=== PATIENT | female | born 1945 | race Caucasian/White ===

== ENCOUNTER → 2018-07-31 18:26 | Outpatient (CLI) | payer MEDICARE, SELFPAY ==
[2018-07-31 20:29] LABS: M R Staph aureus DNA By PCR Negative (Negative); Probe Check PASS; Specimen Processing Control PASS; Staph aureus DNA By PCR NEGATIVE (Negative)
== END ==
PROVIDERS: Visit Provider Ophthalmology
DX: Z22.321 Carrier or suspected carrier of Methicillin susceptible Staphylococcus aureus (principal)
CPT/HCPCS: 87640

== ENCOUNTER → 2019-02-25 | Outpatient (CLI) | payer MEDICARE, SELFPAY | END | disposition home or self-care (01) | PROVIDERS: Referring Provider Ophthalmology; Visit Provider Ophthalmology | DX: Z22.321 Carrier or suspected carrier of Methicillin susceptible Staphylococcus aureus (principal) | CPT/HCPCS: 87081 ==

== ENCOUNTER 2024-12-31 11:58 | Emergency (ER) | payer MEDICARE, SELFPAY ==
[2024-12-31 11:59] VITALS: BP 192/97; PULSE 78; RESP 16; TEMP 36.5; O2SAT 99; BMI 21.2
--- NOTE | 2024-12-31 13:16 | EKG12_ITS ---
Test Reason : Blood Pressure : */* mmHG Vent. Rate : 66 BPM Atrial Rate : 66 BPM P-R Int : 136 ms QRS Dur : 98 ms QT Int : 420 ms P-R-T Axes : 65 -8 38 degrees QTcB Int : 440 ms Normal sinus rhythm Moderate voltage criteria for LVH, may be normal variant ( R in aVL , [place] product ) Borderline ECG Confirmed by TIMOTHY HANSEN, FRANCESCO ([id number]), scientific editor STEVIE CROWDER ([id number]) on 01/02/2025 12:56:25 PM Referred By: IAN Confirmed By: FRANCESCO AGUIRRE MD
--- NOTE | 2024-12-31 13:16 | CT_ITS ---
EXAM: BRAIN/HEAD WITHOUT CONTRAST CLINICAL HISTORY: Hypertensive headaches. COMPARISON: None. TECHNIQUE: Helical imaging of CT head was performed without IV contrast. One or more of the following dose reduction techniques were used: automated exposure control, adjustment of the mA and/or kV according to patient size, use of iterative reconstruction technique. FINDINGS: BRAIN PARENCHYMA: No evidence for acute hemorrhage or large territory infarct. EXTRA-AXIAL SPACES: No acute extra-axial fluid collection identified. Basal cisterns are patent. Mild degree of cerebral atrophy in keeping with the patient's age. MIDLINE SHIFT: None. VENTRICLES: No evidence of hydrocephalus. SCALP SOFT TISSUES: No significant abnormality. CALVARIUM: No acute process. VISUALIZED PARANASAL SINUSES: No air-fluid levels. MASTOID AIR CELLS: Grossly clear. CT/Brain/Head without Contrast IMPRESSION: Mild degree of cerebral atrophy. Reading Location: [place] [address]
--- NOTE | 2024-12-31 13:18 | EDS_ITS ---
HPI History of Present Illness Chief Complaint: Hypertension Narrative Narrative: 79-year-old female presents from gastroenterology office as she was there for an outpatient visit, with elevated blood pressure. While she states that she does not have history of hypertension and does not take any medication, there was a time a few months ago that her blood pressure was elevated and she was told by her primary care provider to log her blood pressures. She has not done that for a month and a half approximately. She presents to the emergency department with reported blood pressure elevated at 188 systolic. She denies any chest pain or shortness of breath but states over the last few days she has had headache. She denies any paresthesias, no exacerbating or alleviating factors. [facility] Medical History Migraine Colitis Heart valve problem Vision problems Pneumonia Macular degeneration Cataracts, bilateral Seasonal allergies Home Medications ?Medication ?Instructions ?Recorded ?Last Taken ?Type amlodipine 5 mg tablet 5 mg PO DAILY #30 tabs 12/31 Unknown Rx peg 3350-electrolytes 236 240 ml PO Q10M #4,000 mL 11/12 Unknown Rx gram-22.74 gram-6.74 gram-5.86 gram solution (Golytely) Allergy/AdvReac Type Severity Reaction Status Date / Time No Known Allergies Allergy Verified 12/31/24 12:01 Family History Grandmother Colon cancer Aunt Colon cancer Daughter Autoimmune disorder Other CVA (cerebral vascular accident) Diabetes Hypertension Social History Smoking Status: Never smoker ROS ROS ED ROS Narrative Review of systems positive for headaches over the last few days. No chest pain, no shortness of breath, no nausea or vomiting, no diaphoresis. Denies other symptoms. Otherwise asymptomatic except for headaches. EXAM Physical Exam Narrative Exam Narrative: Afebrile. Vital signs noted. Blood pressure noted in triage as 192/97. Nontoxic-appearing. Cardiovascular examination reveals a regular rate and rhythm. Lungs are clear to auscultation bilaterally. Abdomen is soft nontender without guarding or rebound. No noted pedal edema. Neurological examination nonfocal and nonlateralizing. Const Vital Signs: 12/31/24 11:59 12/31/24 11:59 12/31/24 13:59 Temperature 97.7 F L Temperature Source Oral Pulse Rate 78 79 Respiratory Rate 16 13 Respiratory Effort Normal Non-Labored Blood Pressure 192/97 H 156/86 H Blood Pressure Mean 128 109 Pulse Ox 99 97 Oxygen Delivery Method Room Air MDM MDM MDM Narrative Medical decision making narrative: Differential diagnosis includes but not limited to hypertensive intracranial hemorrhage for her headaches versus nonspecific headache. She may have a hypertensive urgency versus emergency. She is not having chest pain or shortness of breath. As she relates history that she has had problems throughout the years with fluctuating blood pressure and was told to keep an eye on her blood pressure as it was elevated a few months ago, I do feel that she may need to be started on medication. Given her elevated blood pressure here she was administered hydralazine [address] of the brain will be obtained to rule out hemorrhage. I will obtain EKG and CBC as well as CMP and a single troponin. She was placed on a director of scientific research. Do not feel she requires chest x-ray as she is not having chest pain and is asymptomatic with her elevated blood pressure except for slight headache. After hydralazine, systolic blood pressure 155. I reviewed her laboratory work and she has normal white count of 5.7 with hemoglobin normal at 13.2, platelet count normal at 256. Chloride slightly elevated at 108 which I think is nonspecific, glucose 100. LFTs grossly unremarkable. High-sensitivity troponin 6. EKG obtained and interpreted by myself independently as normal sinus rhythm at 66 bpm without ectopy or acute ST changes. No STEMI. I reviewed the radiology report of the CT of the brain which shows no acute hemorrhage, no acute process. At this point in time, I stressed the importance of blood pressure control. I do not feel she requires admission or observation. I wrote her a prescription for amlodipine 5 mg orally to take daily, and she will keep a log of her blood pressures for her primary care provider. She states she has an appointment sometime next week. Return instructions to the emergency department were reviewed. Disposition is discharged home in stable condition. History & Record Review Discussion w/independent historian: Patient Lab Data Attestation: I reviewed the patient's lab results. Labs: Laboratory Results - last 24 hr 12/31/24 13:30 WBC 5.7 RBC 4.64 Hgb 13.2 Hct 41.2 MCV 88.8 MCH 28.4 MCHC 32.0 RDW Std Deviation 45.8 H RDW Coeff of Fazal 14.1 Plt Count 256 MPV 9.3 Immature Gran % (Auto) 0.200 Neut % (Auto) 61.1 Lymph % (Auto) 27.4 Grainger % (Auto) 8.3 Eos % (Auto) 2.1 Baso % (Auto) 0.9 Absolute Neuts (auto) 3.5 Absolute Lymphs (auto) 1.55 Nucleated RBC % 0 Sodium 141 Potassium 3.5 Chloride 108 H Carbon Dioxide 28.0 Anion Gap 5 BUN 14 Creatinine 0.70 Estim Creat Clear Calc 54.26 Est GFR (MDRD) Af Amer 105 Est GFR (MDRD) Non-Af 86 BUN/Creatinine Ratio 20.1 H Glucose 100 Calcium 9.1 Total Bilirubin 0.60 AST 18 ALT 30 Alkaline Phosphatase 63 Troponin I High Sens 6 Total Protein 7.0 Albumin 4.0 Globulin 3.0 Albumin/Globulin Ratio 1.3 Radiography Diagnostic Testing: Clinical Impression(s) from Imaging Studies Brain CT 12/31/24 13:16 IMPRESSION: Mild degree of cerebral atrophy. Reading Location: [place] [address] Discharge Plan Triage Chief Complaint: Hypertension ED Provider: Ravin Walker Dx/Rx/DC Orders Clinical Impression: Hypertension, Headache Instructions: ED Hypertension New Begin Treatment Prescriptions: New amlodipine 5 mg tablet 5 mg PO DAILY Qty: 30 0RF No Action peg 3350-electrolytes [Golytely] 236-22.74-6.74 -5.86 gram recon soln 240 ml PO Q10M Qty: 4000 0RF Rx Instructions: take as directed for split dose bowel prep Primary Care Provider: Caitlin Travis Referrals: Caitlin Travis PABayC [Primary Care Provider] - 3-5 Days if not improving Activity Restrictions/Additional Instructions: Keep a log of your blood pressures for your primary care provider and follow-up as scheduled next week. Return to the emergency department with chest pain, shortness of breath, continued elevated blood pressure, especially above 200 systolic, new or worsening symptoms Print Language: Mohawk Disposition Disposition: Home, Self Care
[2024-12-31] MEDS: hydrALAZINE 20 MG/ML Vial 10 MG IV (13:38)
[2024-12-31 13:47] LABS: Absolute Lymphocyte Count 1.55 X10^3/uL (0.83-4.51); Absolute Neutrophil Count 3.5 X10^3/uL (2.0-7.7); Basophil# 0.05 X10^3/uL; Basophil% 0.9 % (0-1); Eosinophil# 0.12 X10^3/uL; Eosinophils% 2.1 % (0-5); Hematocrit 41.2 % (37-47); Hemoglobin 13.2 g/dL (12.0-15.0); Lymphocyte # 1.55 X10^3/ul (0.83-4.51); Lymphocyte % 27.4 % (19-41); Mean Corpuscular Hgb 28.4 pg (27.0-32.0); Mean Corpuscular Volume 88.8 fL (81-99); Mean Platelet Vol. 9.3 fl (6.2-12.0); Monocyte# 0.47 X10^3/uL; Monocyte% 8.3 % (0-10); NRBC Flagged by Analyzer 0 % (0-5); Neutrophil # 3.46 X10^3/uL (2.7-7.7); Neutrophil % 61.1 % (47-70); Platelet Count 256 K/mm3 (150-450); RBC Distribution Width CV 14.1 % (11.6-14.6); RBC Distribution Width SD 45.8 fl (35.1-43.9); Red Blood Count 4.64 M/mm3 (4.2-5.4); White Blood Count 5.7 K/mm3 (4.4-11.0)
[2024-12-31 13:59] VITALS: BP 156/86; PULSE 79; RESP 13; O2SAT 97
[2024-12-31 14:00] LABS: ALB/GLOB Ratio 1.3 RATIO (0.9-2.4); AST(SGOT) 18 U/L (15-37); Alanine Aminotransfer ALT/SGPT 30 U/L (13-56); Alkaline Phosphatase 63 U/L (45-117); Anion Gap 5 (5-15); BUN 14 mg/dL (7-18); BUN/Creat Ratio 20.1 RATIO (10-20); Calcium,Total 9.1 mg/dL (8.5-10.1); Chloride 108 mmol/L (98-107); EST Glomerular Filtration Rate 86 mL/min (>60); Est Glom Filt Rate - Afr Amer 105 mL/min (>60); Estimated Creatinine Clearance 54.26 ml/min; Glucose 100 mg/dL (74-106); Potassium 3.5 mmol/L (3.5-5.1); Sodium Level 141 mmol/L (136-145); Troponin-I HS 6 pg/mL (3.0-54.0)
[2024-12-31 14:53] VITALS: BP 152/78; PULSE 77; RESP 14; TEMP 36.8; O2SAT 98
== END 2024-12-31 14:54 | disposition home or self-care (01) ==
PROVIDERS: Emergency Provider Emergency Medicine; PCP Family Medicine; Visit Provider Emergency Medicine
DX: I10 Essential (primary) hypertension (principal); R51.9 Headache, unspecified
CPT/HCPCS: 70450; 80053; 84484; 85025; 93005; 96374; 99284; A4216

== ENCOUNTER 2025-04-16 08:04 | Day surgery (SDC) | payer MEDICARE, SELFPAY ==
[2025-04-16] VITALS (9 sets, daily range): BP systolic 86–127; BP diastolic 52–68; PULSE 65–76; RESP 16–18; TEMP 36.1–37; O2SAT 93–97; BMI 21.2
[2025-04-16] MEDS: Lactated Ringers 1,000 ML 15 ML IV (08:49)
--- NOTE | 2025-04-16 08:58 | PRE.ANES_ITS ---
ASA Classification* ASA Classification ASA Classification: 2 (HTN, Crohns disease) Assessment & Plan Anesthesia* Anesthesia Assessment Anesthesia Assessment: Discussed sedation and/or anesthesia options, risks, benefits, and alternatives with patient/parents/legal guardian/POA. Questions invited. The patient/parents/legal guardian/POA seems to understand and agrees to proceed with anesthesia plan. Reviewed the physical assessment, medical history, allergy history and patient home medications list prior to surgery/procedure/anesthetic and documented any changes. Performed airway and anesthesia risk assessments. Anesthesia Type Anesthesia Type: General History Source History Obtained from:: Patient and Chart Anesthesia Focused Assessment* Temperature: 98.6 F Pulse Rate: 69 Blood Pressure: 127/68 Respiratory Rate: 18 Pulse Ox: 94 Oxygen Delivery Method: Room Air Airway Assessment Mouth opens: >3 cm Mallampati Score: II Teeth Condition: Dentures, Lower and Upper Neck Range of motion (ROM): Full ROM Focused Labs Anesthesia Preop lab: CBC WBC 5.7 K/mm3 (4.4-11.0) 12/31/24 13:12/31/24 RBC 4.64 M/mm3 (4.2-5.4) 12/31/24 13:12/31/24 Hgb 13.2 g/dL (12.0-15.0) 12/31/24 13:12/31/24 Hct 41.2 % (37-47) 12/31/24 13:12/31/24 Plt Count 256 K/mm3 (150-450) 12/31/24 13:12/31/24 CHEMISTRY Potassium 3.5 mmol/L (3.5-5.1) 12/31/24 13:12/31/24 Sodium 141 mmol/L (136-145) 12/31/24 13:12/31/24 BUN 14 mg/dL (7-18) 12/31/24 13:12/31/24 Creatinine 0.70 mg/dL (0.55-1.02) 12/31/24 13:12/31/24 Glucose 100 mg/dL (74-106) 12/31/24 13:30 12/31/24 COAG Pre-Assessment Diagnosis/Proposed Procedure Planned Operative Procedure(s): COLONOSCOPY/EGD Anesthesia History Anesthesia History - event marketing assistant: Anesthesia History - event marketing assistant Hx Hospitalization No 04/14/25 15:53 Any Problems With Anesthesia Yes: DIDN'T COME OUT OF 04/14/25 15:53 ANESTHESIA VERY WELL Cholinesterase deficiency No 04/14/25 15:53 You/Your Family Experience No 04/14/25 15:53 fever (hyperthermia) with Relationship Recent Exposure to Contagious No 04/16/25 08:34 Disease Does patient have nerve No 04/14/25 15:53 stimulator Patient instructed to have device shut off --Does patient have Pacemaker No 04/16/25 08:34 or ICD? When Was Last Pacemaker Check QUESTION #4 FULL TEXT: You/Your Family Experience fever (hyperthermia) with Anesthesia Last Oral Intake Last Oral intake: Last Oral Intake NPO since 06:00 04/16/25 08:34 Meds taken in AM with sips of water? Meds patient instructed to take am of surgery PONV PONV - event marketing assistant: PONV - event marketing assistant Female Yes 04/14/25 15:53 HX of Motion Sickness No 04/14/25 15:53 HX of N/V After Surgery No 04/14/25 15:53 Non-Smoker Yes 04/14/25 15:53 Duration of Surgery greater No 04/14/25 15:53 than 60 minutes Number of Risk Factors 2 04/14/25 15:53 PONV Score Moderate Risk 04/14/25 15:53 Height & Weight Height & Weight: Anesthesia: Height & Weight Height 5 ft 5 in 04/16/25 08:34 Weight: 58 kg 04/16/25 08:34 Body Mass Index (BMI) 21.2 04/16/25 08:34 Respiratory Assessment Respiratory Assessment - event marketing assistant: Respiratory Tract Infection Hx - event marketing assistant Hx Respiratory Tract Infection No 04/14/25 15:53 STOP Sleep Apnea STOP Sleep Apnea - event marketing assistant: STOP Sleep Apnea - event marketing assistant Hx Hypertension Yes: SITUATIONAL 04/14/25 15:53 Hx Sleep Apnea No 04/14/25 15:53 CPAP BIPAP Do you snore loudly (louder No 04/14/25 15:53 than talking or can be heard Do you often feel tired/ No 04/14/25 15:53 fatigued/ sleepy during daytime? Has anyone observed you stop No 04/14/25 15:53 breathing during sleep? STOP Results Negative 04/14/25 15:53 QUESTION #5 FULL TEXT : Do you snore loudly (louder than talking or can be heard through closed doors)? Tobacco Use History Tobacco Use History - event marketing assistant: Tobacco Use History - event marketing assistant Tobacco Use Smoking Status Never smoker 04/14/25 15:53 Hx Tobacco Use No 04/14/25 15:53 Years Smoking Packs Smoked per Day Smoking Cessation Date was within the last 15 years Hx Smoking Cessation Date Hx Smoking Cessation Counseling Hematologic Medial History Hematologic Hx - event marketing assistant: Hematologic Medical Hx - [facility] [employer] [facility] Hx of Blood Transfusion No 04/14/25 15:53 Hx of Transfusion in last 3 No 04/14/25 15:53 Months Date of Last Transfusion (if within last 3 months) Ever experience any problems No 04/14/25 15:53 with transfusion(s)? Specify any problems Hx of Preganancy in last 3 No 04/14/25 15:53 Months Nurse Filling Out Transfusion VCHRISTIN 04/14/25 15:53 & Questions: Date: 04/14/25 04/14/25 15:53 Time: 15:55 04/14/25 15:53 Patient unable to answer at this time (ie. confused, unrespo /Reproduction History /Reproductive History - event marketing assistant: /Reproductive Hx- event marketing assistant Hx Now Gestational Age (in weeks): EDC: Hx Hx Para Hx Section SAB Active Medications Active Medications: Current Medications Generic Name Dose Route Start Last Admin Trade Name Freq PRN Reason Stop Dose Admin Lactated Ringer's 1,000 mls @ 15 mls/hr 04/16/25 08:15 04/16/25 08:49 IV 15 mls/hr .Q48H VIOLETTE Administration PFSH Medical History (Updated 04/14/25 @ 15:53 by Hortencia Tran) Wears glasses MRSA infection Post-menopausal Arthritis Injury of head and neck Blackout History of IBS Non-smoker History of pain when walking History of edema History of echocardiogram Hypertension History of irregular heartbeat Migraine Colitis Heart valve problem Vision problems Pneumonia Macular degeneration Cataracts, bilateral Seasonal allergies Home Medications ?Medication ?Instructions ?Recorded ?Last Taken ?Type amlodipine 5 mg tablet 5 mg PO DAILY #30 tabs 12/3104/16/25 Rx peg 3350-electrolytes 236 240 ml PO Q10M #4,000 mL 11/12 Unknown Rx gram-22.74 gram-6.74 gram-5.86 gram solution (Golytely) cholecalciferol (vitamin D3) 25 25 mcg PO DAILY Unknown History mcg (1,000 unit) capsule (Vitamin D3) magnesium 250 mg tablet 250 mg PO DAILY 04/14/25 Unk nown History potassium gluconate 595 mg (99 mg) 595 mg PO DAILY Unknown History tablet vit C 250 mg-vit E 90 mg-zinc 40 1 tab PO BID 04/14/25 Unknown History mg-copper 1 [id number] capsule (PreserVision AREDS-2) vitamin B complex (Balanced B-50 1 tab PO DAILY Unknown History tablet) Allergy/AdvReac Type Severity Reaction Status Date / Time peanut (peanuts) Allergy Severe Anaphylaxis Verified 04/16/25 08:32 Family History Grandmother Colon cancer Aunt Colon cancer Daughter Autoimmune disorder Other CVA (cerebral vascular accident) Diabetes Hypertension Surgical History (Updated 04/14/25 @ 15:53 by Hortencia Tran) Hx of surgical procedure Hx of tonsillectomy Social History Smoking Status: Never smoker Review of Systems (Anesthesia) ROS Narrative System reviewed and no additional complaints, except as documented. Physical Exam Const alert, oriented x3 and average body habitus Resp normal respiratory effort, normal air movement and clear to auscultation bilaterally Cardio regular rate, regular rhythm, no murmurs and diaphoretic
--- NOTE | 2025-04-16 09:15 | EGD_PTH ---
PATIENT: MARIBETH SHIPLEY LOC: EN U#:[id number] AGE/SX: 79/F ROOM: RE04/16/[address]: Dr. Reji Hawthorne DO : 1945 BED: DIS: 04/16/2025 SPEC #: [id number] RECD: 04/16/25 18:17 STATUS: MARTIN RETeri #: [id number] DANYA: 04/16/25 09:[address]: Reji Hawthorne DEPT: SURGICAL PATHOLOGY RECD BY: Irineo Aquino ENTERED: 04/17/25 08:35 SP TYPE: EGD BIOPSY OT DR: Caitlin Travis PA-C Tissues: A - Duodenum, NOS B - Gastric mucous membrane C - Esophagus, NOS D - Ileum, NOS E - COLON BIOPSY Procedures: Surgery Specimen Level IV HEADER OPERATION: Colonoscopy, EGD biopsy, polypectomy PRE-OP DIAGNOSIS: Abdominal symptoms, change in bowel habits, family history of colon cancer, fecal incontinence, nausea TISSUE SUBMITTED: A- Duodenum biopsy, B- Gastric body biopsy, C- Distal esophagus biopsy, D- Terminal ileum biopsy, E- Hepatic flexure biopsy MICROSCOPIC DIAGNOSIS A. Small bowel, duodenum, biopsy: Normal villous morphology with Jane gland hyperplasia. Negative for increased intraepithelial lymphocytes. B. Stomach, gastric body, biopsy: Oxyntic mucosa with features of reactive gastropathy. Negative for Helicobacter-like organisms (H&E). C. Esophagus, distal, biopsy: Squamous mucosa with reactive changes. Columnar mucosa, negative for goblet cell metaplasia. D. Small bowel, terminal ileum, biopsy: Normal villous morphology with no specific pathologic change. E. Colon, hepatic flexure, polyp, biopsy: Hyperplastic polyp. MICROSCOPIC DESCRIPTION Slides are reviewed. GROSS DESCRIPTION A. Received in formalin in a container labeled with the patient's name, date of , and duodenum biopsy are 2 arevalo-pink fragments of mucosal tissue each measuring 0.5 x 0.3 x 0.3 cm. Submitted in toto in A1. B. Received in formalin in a container labeled with the patient's name, date of , and gastric body biopsy are 2 arevalo-pink fragments of mucosal tissue measuring 0.3 x 0.3 x 0.2 cm and 0.5 x 0.4 x 0.2 cm. Submitted in toto in B1. C. Received in formalin in a container labeled with the patient's name, date of , and distal esophagus biopsy are 2 arevalo-pink fragments of mucosal tissue measuring 0.3 x 0.3 x 0.3 cm and 0.5 x 0.3 x 0.2 cm. Submitted in toto in C1. D. Received in formalin in a container labeled with the patient's name, date of , and terminal ileum biopsy are 2 arevalo-pink fragments of mucosal tissue, each measuring 0.3 x 0.3 x 0.2 cm. Submitted in toto in D1. E. Received in formalin in a container labeled with the patient's name, date of , and hepatic flexure polyp is a 0.4 x 0.4 x 0.3 cm fragment of arevalo-pink mucosal tissue. Submitted in toto in E1. [facility] 04-17-2025 CPT:97502r5
--- NOTE | 2025-04-16 09:22 | PCM.HP.STD ---
HPI - General General Date of Admission: 04/16/25 Date of Service: 04/16/25 Chief Complaint: Fecal incontinence HPI Narrative HPI HPI Chief Complaint: fecal leakage Details: JESSICA SHIPLEY, is a 79 F who presents for the evaluation of abdominal pain and fecal continence. Colon & EGD 8-10 years ago - Dr. Carpio - reports she had colitis and with age this has changed to IBS - no longer passing large globs of mucus - denies any h/o treatment for colitis back then they didn't do anything - fecal incontinence - feels like there is a pocket that stool is getting stuck in and then has leakage - symptoms have been on going for several years and getting worse - stool is formed typically, or can have small pieces/pellets of stool - reports she has a BM daily but can also have small stools several times a day - ABD Pain - sharp and dull abdominal pain - sometimes feels like a knife is scraping her insides - she is not able to associate pain to a BM or PO intake - c/o nausea with loss of appetite - denies any weight loss - denies any dysphagia Niece, Daughter and Grandson with Crohn's Grandmother, Aunt and Cousin with colon CA - hypertensive today - reports this is not unusual for her when she comes to doctors - although states she has had head ringing the past few nights - she does not take BP medication - feeling a little lightheaded all day yesterday and mild today - denies any SOB - she reports her PCP has wanted to put her on HTN meds in the past and she has declined - states she has been busy with family and grand daughter and neglecting her health FORMERLY [facility], [facility] Medical History Wears glasses MRSA infection Post-menopausal Arthritis Injury of head and neck Blackout History of IBS Non-smoker History of pain when walking History of edema History of echocardiogram Hypertension History of irregular heartbeat Migraine Colitis Heart valve problem Vision problems Pneumonia Macular degeneration Cataracts, bilateral Seasonal allergies Home Medications ?Medication ?Instructions ?Recorded ?Last Taken ?Type amlodipine 5 mg tablet 5 mg PO DAILY #30 tabs 12/31/24 04/16/25 Rx peg 3350-electrolytes 236 240 ml PO Q10M #4,000 mL 12/31/24 Unknown Rx gram-22.74 gram-6.74 gram-5.86 gram solution (Golytely) cholecalciferol (vitamin D3) 25 25 mcg PO DAILY 04/14/25 Unknown History mcg (1,000 unit) capsule (Vitamin D3) magnesium 250 mg tablet 250 mg PO DAILY 04/14/25 Unknown History potassium gluconate 595 mg (99 mg) 595 mg PO DAILY 04/14/25 Unknown History tablet vit C 250 mg-vit E 90 mg-zinc 40 1 tab PO BID 04/14/25 Unknown History mg-copper 1 [id number]-yfxkop capsule (PreserVision AREDS-2) vitamin B complex (Balanced B-50 1 tab PO DAILY 04/14/25 Unknown History tablet) Allergy/AdvReac Type Severity Reaction Status Date / Time peanut (peanuts) Allergy Severe Anaphylaxis Verified 04/16/25 08:32 Family History Grandmother Colon cancer Aunt Colon cancer Daughter Autoimmune disorder Other CVA (cerebral vascular accident) Diabetes Hypertension Surgical History Hx of surgical procedure Hx of tonsillectomy Social History Smoking Status: Never smoker ROS Constitutional Constitutional: Denies fatigue, fever(s), poor appetite, weight gain or weight loss Gastrointestinal Gastrointestinal: Denies belching, bloating, change in bowel habits, change in stool character, chewing difficulty, coffee ground emesis, constipation, cramping, diarrhea, dyspepsia, dysphagia, early satiety, excessive flatus, fecal incontinence, heartburn, hematemesis, hematochezia, hemorrhoids, loose stools, melena, nausea, odynophagia, rectal bleeding, tenesmus, vomiting or weight changes Vital Signs Vital Signs Vital Signs: 04/16/25 08:34 04/16/25 08:34 04/16/25 09:00 Temperature 98.6 F 98.6 F Temperature Source Temporal Pulse Rate 69 69 Respiratory Rate 18 18 Respiratory Pattern Normal Blood Pressure 127/68 H 127/68 H Blood Pressure Mean 87 Blood Pressure Source Monitor Blood Pressure Position Semi-Fowlers Blood Pressure Location Right Arm Pulse Ox 94 94 Oxygen Delivery Method Room Air Room Air Weight Weight: 127 lb 13.89 oz Body Mass Index (BMI) 21.2 Physical Exam Const alert, oriented x3, no apparent distress and healthy appearing General Appearance: cooperative GI normal to inspection, nondistended, normoactive bowel sounds, soft to palpation, non-tender and non-distended Percussion: normal to percussion Rectal Exam: deferred Assessment & Plan Assessment/Plan (1) Fecal incontinence: QUALIFIERS: Fecal incontinence type: incomplete defecation Qualified Code(s): R15.0 - Incomplete defecation (2) Family history of Crohn's disease: (3) RUQ pain: (4) Abdominal pain: QUALIFIERS: Abdominal location: generalized Qualified Code(s): R10.84 - Generalized abdominal pain (5) Nausea: (6) IBS (irritable bowel syndrome): PLAN: Assessment and Plan Assessment and Plan (1) Abdominal symptoms: (2) Change in bowel habits: (3) Family history of colon cancer: (4) Fecal incontinence: Status: Acute Qualifiers: Fecal incontinence type: incomplete defecation Qualified Code(s): R15.0 - Incomplete defecation (5) Nausea: Status: Acute (6) Abdominal pain: Status: Acute Qualifiers: Abdominal location: generalized Qualified Code(s): R10.84 - Generalized abdominal pain (7) RUQ pain: Status: Acute (8) Family history of Crohn's disease: Status: Acute (9) Hypertension: Status: Chronic Plan: ED Orders: Orders CBC W/Diff, Automated Today R10.11 - Right upper quadrant pain, R10.9 - Unspecified abdominal pain, R11.0 - Nausea, R15.9 - Full incontinence of feces, R19.4 - Change in bowel habit, Z80.0 - Family history of malignant neoplasm of digestive organs, Z83.79 - Family history of other diseases of the digestive system Comprehensive Metabolic Profil Today R10.11 - Right upper quadrant pain, R10.9 - Unspecified abdominal pain, R11.0 - Nausea, R15.9 - Full incontinence of feces, R19.4 - Change in bowel habit, Z80.0 - Family history of malignant neoplasm of digestive organs, Z83.79 - Family history of other diseases of the digestive system Abdomen Limited Today R10.11 - Right upper quadrant pain, R10.9 - Unspecified abdominal pain, R11.0 - Nausea, R15.9 - Full incontinence of feces, R19.4 - Change in bowel habit, Z80.0 - Family history of malignant neoplasm of digestive organs, Z83.79 - Family history of other diseases of the digestive system CRP Today R10.11 - Right upper quadrant pain, R10.9 - Unspecified abdominal pain, R11.0 - Nausea, R15.9 - Full incontinence of feces, R19.4 - Change in bowel habit, Z80.0 - Family history of malignant neoplasm of digestive organs, Z83.79 - Family history of other diseases of the digestive system Medications: New peg 3350-electrolytes 236-22.74-6.74 -5.86 gram (Golytely) take as directed for split dose bowel prep 240 mL PO Q10M 4,000 mL 0RF Plan 79y/o female presents for initial consultation with complaints of nausea, abdominal pain, fecal leakage and BRBPR. Symptoms have been ongoing for many years and worse recently. Nausea prevents her from eating but denies any weight loss. Abdominal pain is generalized and can be dull or sharp. She is unable to associate a trigger for pain. She reports having a bowel movement daily, stools can be once a day and formed or several small pellets of stool daily. She also experiences fecal incontinence/leakage. ABD exam is revealing for RUQ tenderness. She is noted to be hypertensive today 183/104 and 188/114 on recheck. She has been experiencing dizziness and ringing in head the past few days. I have recommended ED evaluation now for HTN. Our office will contact her in the next few days to arrange ABD US, EGD/Colonoscopy. Patient Instructions: Complete labs Complete ABD US Colonoscopy and EGD Complete ANORECTAL Manometry Metamucil 2 heaping teaspoons once a day with 8 ounces of water in the morning Recommend starting a daily probiotic (Align, Culturelle or [employer]) - pick the cheapest one Follow-up with PCP within the next 24 hours for hypertension or ER if >170 systolic or >100 diastolic or ongoing dizziness, headaches or lightheadedness To schedule your Anorectal Manometry please call [facility] at [phone]. [facility] is located at: [facility] [facility], [address] [place] [address] Your provider has ordered an Anorectal Manometry. Anorectal Manometry is a non-invasive procedure that measures the function of the muscles in the anus and rectum. It's used to assess the strength of the muscles, the sensation in the rectum, and the reflexes that control bowel movements. This test can help determine if the muscles are too tight, too loose, or not engaging at the right time. The test is safe and low risk, and is unlikely to cause pain. To prepare for your test, you will need to: - Take two enemas rectally two hours before the procedure - Avoid eating or drinking anything two hours before the procedure
--- NOTE | 2025-04-16 10:05 | PCM.POST.ANE ---
Anesthesia: Postop Eval I Current Vital Signs Temperature: 97 F Pulse Rate: 76 Blood Pressure: 86/52 Respiratory Rate: 16 Pulse Ox: 96 Oxygen Delivery Method: Room Air Assessment Airway patent: Yes Spontaneous unlabored respirations: Yes Mental status: Awake and Calm nausea: No Vomiting: No Anesthesia Complication: No Fluid Hydration Crystalloid volume administer (ml): 500 Total IV fluid infused: 500 Progress Note Anesthesia document: Postop Eval 1 completed: Yes
--- NOTE | 2025-04-16 10:11 | POSTOPAN2_ITS ---
Anesthesia Postop Eval I Sum Postop Eval Completion status Anesthesia document: Postop Eval 1 completed: Yes Anesthesia Postop Eval I Summary Anesthesia Postop Eval I Summary: Anesthesia Postop Eval I: Assessment Summary Airway patent Yes 04/16/25 10:06 TUNG NUT GROWER.MDOT Spontaneous unlabored Yes 04/16/25 10:06 TUNG NUT GROWER.OT respirations Mental status Awake,Calm 04/16/25 10:06 TUNG NUT GROWER.MDOT nausea No 04/16/25 10:06 TUNG NUT GROWER.MDOT Vomiting No 04/16/25 10:06 TUNG NUT GROWER.MDOT Anesthesia Postop Eval I: Fluid Summary Crystalloid volume administer 500 04/16/25 10:06 TUNG NUT GROWER.MDOT (ml) Colloids volume administered ( ml) Blood Product volume administered (ml) Total IV fluid infused 500 04/16/25 10:06 TUNG NUT GROWER.MERCY Anesthesia Postop Eval I: Summary Notes Anesthesia Complication No 04/16/25 10:06 TUNG NUT GROWER.OT Anesthesia Complication Comment: Post-operative progress note Anesthesia: Postop Eval II Evaluation Mental status: Awake and Calm Pain Level: 0 nausea: No Vomiting: No Complications Anesthesia Complication: No
--- NOTE | 2025-04-16 10:11 | PCM.POSTANE2 ---
Anesthesia Postop Eval I Sum Postop Eval Completion status Anesthesia document: Postop Eval 1 completed: Yes Anesthesia Postop Eval I Summary Anesthesia Postop Eval I Summary: Anesthesia Postop Eval I: Assessment Summary Airway patent Yes 04/16/25 10:06 RECREATION FACILITIES SUPERVISOR.MDOT Spontaneous unlabored Yes 04/16/25 10:06 RECREATION FACILITIES SUPERVISOR.OT respirations Mental status Awake,Calm 04/16/25 10:06 RECREATION FACILITIES SUPERVISOR.MDOT nausea No 04/16/25 10:06 RECREATION FACILITIES SUPERVISOR.MDOT Vomiting No 04/16/25 10:06 RECREATION FACILITIES SUPERVISOR.MDOT Anesthesia Postop Eval I: Fluid Summary Crystalloid volume administer 500 04/16/25 10:06 RECREATION FACILITIES SUPERVISOR.MDOT (ml) Colloids volume administered ( ml) Blood Product volume administered (ml) Total IV fluid infused 500 04/16/25 10:06 RECREATION FACILITIES SUPERVISOR.MERCY Anesthesia Postop Eval I: Summary Notes Anesthesia Complication No 04/16/25 10:06 RECREATION FACILITIES SUPERVISOR.OT Anesthesia Complication Comment: Post-operative progress note Anesthesia: Postop Eval II Evaluation Mental status: Awake and Calm Pain Level: 0 nausea: No Vomiting: No Complications Anesthesia Complication: No
--- NOTE | 2025-04-16 10:18 | OP.CCLET_ITS ---
04/16/2025 [facility] Re : Upper GI endoscopy procedure for Sharifa Travis This procedure was performed on March. My impressions and recommendations are as follows: Impressions : - Z-line irregular, 38 cm from the incisors. Biopsied. - Erythematous mucosa in the gastric body. Biopsied. - Erythematous duodenopathy. Recommendations : - Discharge patient to home. - Resume previous diet. - Continue present medications. - Await pathology results. - Repeat upper endoscopy for surveillance. My findings are described in the full procedure note, which is enclosed. If I can be of further assistance, please feel free to contact me at . Sincerely, Reji Hawthorne, 04/16/2025 10:18:03 AM This report has been signed electronically.
--- NOTE | 2025-04-16 10:18 | OP.EGD_ITS ---
Patient Name: Sharifa Curiel Procedure Date: 04/16/2025 9:29 AM Date of : 1945 Age: 79 Procedure: Upper GI endoscopy Indications: Epigastric abdominal pain, Functional Dyspepsia Providers: Reji Hawthorne DO Referring MD: Caitlin Travis Medicines: Monitored Anesthesia Care Patient Profile: This is a 79 year old female. Refer to note in patient chart for documentation of history and physical. Patient has symptoms. Complications: No immediate complications. Procedure: Pre-Anesthesia Assessment: - Prior to the procedure, a History and Physical was performed, and patient medications and allergies were reviewed. The patient is competent. The risks and benefits of the procedure and the sedation options and risks were discussed with the patient. All questions were answered and informed consent was obtained. Patient identification and proposed procedure were verified by the physician in the pre-procedure area. Mental Status Examination: alert and oriented. Airway Examination: normal oropharyngeal airway and neck mobility. Respiratory Examination: clear to auscultation. CV Examination: normal. Prophylactic Antibiotics: The patient does not require prophylactic antibiotics. Prior Anticoagulants: The patient has taken no anticoagulant or antiplatelet agents except for NSAID medication. ASA Grade Assessment: II - A patient with mild systemic disease. After reviewing the risks and benefits, the patient was deemed in satisfactory condition to undergo the procedure. The anesthesia plan was to use monitored anesthesia care (MAC). Immediately prior to administration of medications, the patient was re-assessed for adequacy to receive sedatives. The heart rate, respiratory rate, oxygen saturations, blood pressure, adequacy of pulmonary ventilation, and response to care were monitored throughout the procedure. The physical status of the patient was re-assessed after the procedure. After obtaining informed consent, the endoscope was passed under direct vision. Throughout the procedure, the patient's blood pressure, pulse, and oxygen saturations were monitored continuously. The pediatric colonoscope was introduced through the mouth, and advanced to the fourth part of the duodenum. Small bowel enteroscopy was deemed necessary. The upper GI endoscopy was accomplished without difficulty. The patient tolerated the procedure well. Scope In: 9:38:01 AM Scope Out: 9:42:23 AM Total Procedure Duration Time 0 hours 4 minutes 22 seconds Findings: The Z-line was irregular and was found 38 cm from the incisors. Biopsies were taken with a cold forceps for histology. Verification of patient identification for the specimen was done. Estimated blood loss was minimal. Patchy mildly erythematous mucosa without bleeding was found in the gastric body. Biopsies were taken with a cold forceps for histology. Verification of patient identification for the specimen was done. Estimated blood loss was minimal. Biopsies were taken with a cold forceps for Helicobacter pylori testing. Verification of patient identification for the specimen was done. Estimated blood loss was minimal. Patchy mildly erythematous mucosa without active bleeding and with no stigmata of bleeding was found in the entire duodenum. Suspect gastroparesis due to absence of peristalsis and patient symptoms. Impression: - Z-line irregular, 38 cm from the incisors. Biopsied. - Erythematous mucosa in the gastric body. Biopsied. - Erythematous duodenopathy. Recommendation: - Discharge patient to home. - Resume previous diet. - Continue present medications. - Await pathology results. - Repeat upper endoscopy for surveillance. Procedure Code(s): --- Professional --- 36923, Small intestinal endoscopy, enteroscopy beyond second portion of duodenum, not including ileum; with biopsy, single or multiple CPT copyright 2021 [employer]. All rights reserved. The codes documented in this report are preliminary and upon elastic yarn twister review may be revised to meet current compliance requirements. Reji Hawthorne DO 04/16/2025 10:18:03 AM This report has been signed electronically. Number of Addenda: 0 Note Initiated On: 04/16/2025 9:29 AM
--- NOTE | 2025-04-16 10:21 | OP.COLON_ITS ---
Patient Name: Sharifa Curiel Procedure Date: 04/16/2025 9:42 AM Date of : 1945 Age: 79 Procedure: Colonoscopy Indications: Screening for colorectal malignant neoplasm Providers: DO Morenita Stahl MD: Caitlin Travis Medicines: Monitored Anesthesia Care Patient Profile: This is a 79 year old female. Refer to note in patient chart for documentation of history and physical. Patient has symptoms. Last Colonoscopy: several years ago. Complications: No immediate complications. Procedure: Pre-Anesthesia Assessment: - Prior to the procedure, a History and Physical was performed, and patient medications and allergies were reviewed. The patient is competent. The risks and benefits of the procedure and the sedation options and risks were discussed with the patient. All questions were answered and informed consent was obtained. Patient identification and proposed procedure were verified by the physician in the pre-procedure area. Mental Status Examination: alert and oriented. Airway Examination: normal oropharyngeal airway and neck mobility. Respiratory Examination: clear to auscultation. CV Examination: normal. Prophylactic Antibiotics: The patient does not require prophylactic antibiotics. Prior Anticoagulants: The patient has taken no anticoagulant or antiplatelet agents except for NSAID medication. ASA Grade Assessment: II - A patient with mild systemic disease. After reviewing the risks and benefits, the patient was deemed in satisfactory condition to undergo the procedure. The anesthesia plan was to use monitored anesthesia care (MAC). Immediately prior to administration of medications, the patient was re-assessed for adequacy to receive sedatives. The heart rate, respiratory rate, oxygen saturations, blood pressure, adequacy of pulmonary ventilation, and response to care were monitored throughout the procedure. The physical status of the patient was re-assessed after the procedure. After I obtained informed consent, the scope was passed under direct vision. Throughout the procedure, the patient's blood pressure, pulse, and oxygen saturations were monitored continuously. The pediatric colonoscope was introduced through the anus and advanced to the terminal ileum. The colonoscopy was performed without difficulty. The patient tolerated the procedure well. The quality of the bowel preparation was adequate. The terminal ileum, ileocecal valve, appendiceal orifice, and rectum were photographed. Scope In: 9:44:21 AM Scope Withdrawal Time 0 hours 11 minutes 42 seconds Scope Out: 10:03:42 AM Total Procedure Duration Time 0 hours 19 minutes 21 seconds Findings: The perianal and digital rectal examinations were normal. An 8 mm polyp was found in the hepatic flexure. The polyp was sessile. The polyp was removed with a hot snare. Resection and retrieval were complete. Verification of patient identification for the specimen was done. Estimated blood loss was minimal. Multiple small and large-mouthed diverticula were found in the entire colon. Localized mild inflammation characterized by congestion (edema) was found in the terminal ileum. Biopsies were taken with a cold forceps for histology. Verification of patient identification for the specimen was done using the patient's name. Moderate rectal prolapse was present. Impression: - One 8 mm polyp at the hepatic flexure, removed with a hot snare. Resected and retrieved. - Diverticulosis in the entire examined colon. Recommendation: - Discharge patient to home. - Resume previous diet. - Continue present medications. - Await pathology results. - Repeat colonoscopy in 5 years for surveillance. Procedure Code(s): --- Professional --- 59011, Colonoscopy, flexible; with removal of tumor(s), polyp(s), or other lesion(s) by snare technique CPT copyright 2021 [employer]. All rights reserved. The codes documented in this report are preliminary and upon occupational therapy department chair review may be revised to meet current compliance requirements. Reji Hawthorne DO 04/16/2025 10:20:51 AM This report has been signed electronically. Number of Addenda: 0 Note Initiated On: 04/16/2025 9:42 AM
--- NOTE | 2025-04-16 10:21 | OP.CCLET_ITS ---
04/16/2025 [facility] Re : Colonoscopy procedure for Sharifa Travis This procedure was performed on March. My impressions and recommendations are as follows: Impressions : - One 8 mm polyp at the hepatic flexure, removed with a hot snare. Resected and retrieved. - Diverticulosis in the entire examined colon. Recommendations : - Discharge patient to home. - Resume previous diet. - Continue present medications. - Await pathology results. - Repeat colonoscopy in 5 years for surveillance. My findings are described in the full procedure note, which is enclosed. If I can be of further assistance, please feel free to contact me at . Sincerely, Reji Hawthorne, 04/16/2025 10:20:51 AM This report has been signed electronically.
== END 2025-04-16 11:17 | disposition home or self-care (01) ==
LOC: EN 08:06 → AC 08:08
PROVIDERS: PCP Family Medicine; Referring Provider Family Medicine; Visit Provider Internal Medicine Gastroenterology
PROC: 0DJD8ZZ Inspection of Lower Intestinal Tract, Via Natural or Artificial Opening Endoscopic (ICD-10-PCS; CPT 45378; principal; 2025-04-16 09:10)
DX: Z12.11 Encounter for screening for malignant neoplasm of colon (principal); K57.30 Diverticulosis of large intestine without perforation or abscess without bleeding; R15.0 Incomplete defecation; K63.5 Polyp of colon; K58.9 Irritable bowel syndrome, unspecified; I10 Essential (primary) hypertension; R63.0 Anorexia; R10.84 Generalized abdominal pain; Z79.899 Other long term (current) drug therapy
CPT/HCPCS: 44361; 45385; 88305

== ENCOUNTER 2025-09-24 11:00 | Outpatient (RCR) | payer MEDICARE, SELFPAY ==
--- NOTE | 2025-07-30 15:27 | HP.PTEVAL_ITS ---
Patient's Visit Information Visit Information Visit Information: SHARIFA SHIPLEY is a 79 year old F referred to Physical Therapy by SAIRA Tilley with a diagnosis of Incomplete defecation R15.0. Date of Evaluation: 07/30/25 Physical Therapist: Vita Warren Visit Plan Frequency: 1x/Week Duration: 3 Months Plan: Sharifa's stool leakage appears to be related to any of the following possibilities: 1) Small rectocele which is affecting her ability to fully empty her bowels. Will educate her in splinting and evacuation techniques to help 2) Pelvic floor tightness that could be affecting her pelvic floor contraction ability, sensation and or ability to empty bowels completely 3) Difficult to rule out the possibility of encopresis given her chronic history of constipation She has pelvic floor tightness and weakness which we will address in our sessions with manual therapy and strengthening. We will also address her right lumbar symptoms as that is also affecting her pelvic floor. Will see her 1 x week. Next visit continue pelvic floor releases to address moderate tightness (worse on right side). Will initiate strengthening once tightness more resolved. Start her on happy baby or deep breathing. Address her right low back, hip pain (check for upslip). Has she tried splinting or finding Femeeze? Subjective Subjective: She is having bowel leakage as her biggest concern . She has had this for 10 years which started years ago after a colonoscopy. Her most recent colonoscopy in February. Normal. In the past , she states she has been told she has a rectal prolapse and hemorrhoids. More recently she saw a head bellhop captain in [place] that did a thorough internal rectal exam and he didn't find a prolapse or hemorrhoids. Doctor states he would like her to try pelvic floor therapy. Bowel leakage doesn't occur every day. She states she is never constipated (although she states she has a long history of constipation) but sometimes her bowel movements are really firm. She feels that she has trouble fully emptying her bowels and movements aren't always complete. She will sit down for a drink of coffee after her bowel movement , and feels small pellets of stool leakage that can happen intermittently all day sometimes. She can hold back gas as she very seldom has gas. Over the last 3 months, she has been so much better and was doing better but it returned a few weeks ago where she was sick with diarrhea and then her symptoms returned. She wears a mini pad (on a bad day she can go thru 6 pads a day). She notices it is affecting her lifestyle and she is avoiding activities because of it. She has right low back, hip pain which can radiate into her right lower abdomen. Once in a while, her bowel movements are loose and that affects her lifestyle as she is afraid of having leaking in public and wants to avoid embarrassment. She is starting to get a little bit more incontinence (when she drinks coffee) with urge or stress incontinence. She watches her granddaughter who is 4 years old on average 2 days a week. No regular exercise Pain Right lowback/hip: Pain Intensity (Out of 10): 2 Pain Intensity Range: 9 Objective Objective: POPDI-6 0, CRAD-8 14, SOUMYA- 6 LAYCOCK 3/2/4/3 MODERATE PELVIC FLOOR TIGHTNESS BILATERALLY BUT WORSE ON RIGHT SIDE LAYER 2 NO EVIDENCE OF CYSTOCELE RECTOCELE 1 (BUT PATIENT HAD DIFFICULTY BEARING DOWN) Good anal wink with pelvic floor contraction Did not evaluate her low back , hip today due to time constraints Goals Goal 1:: Sharifa will not experience any spontaneous stool leaking over the course of a month to allow for less disruption in her day to day activities allowing her to feel like she doesn't have to limit social activities. Goal Time Frame: 8-12 Weeks Goal 2:: Sharifa will not leak with a cough, sneeze or sudden urgency. Goal Time Frame: 6-8 Weeks Goal 3:: Sharifa's low back pain and right hip pain will be absent during activities around her home which require some bending repetitively such as in housework. Goal Time Frame: 8-12 Weeks Rehabilitation Potential Physical Therapy Diagnosis: Rectocele , Mixed incontinence , low back pain, unspecified Rehabilitation Potential: Good Anticipated Interventions Patient/Client Instruction: Educate patient on: Condition and Plan of Care For the Purpose of:: To improve muscle performance and motor function, To improve health and function and To improve self management Therapeutic Exercise to Include: Strength training, Relaxation training and Igor Exercises For the Purpose of:: To decrease pain, To improve muscle performance and motor function, To improve health and function and To improve self management For the Purpose of:: To improve muscle performance and motor function, To impr ove ability to perform ADL's, To improve health and function and To improve self management Manual Therapy Techniques to Include: Trigger point massage and Soft tissue mobilization For the Purpose of:: To decrease pain, To improve muscle performance and motor function, To improve health and function and To improve self management Ultrasound (thermal/non thermal): Yes For the Purpose of:: To decrease pain and To improve health and function Text: Thank you for the opportunity to evaluate your patient. For Medicare and Medicare HMO plans, please review the plan of care and approve it. It will need to be FAXED BACK to us at [phone] for Medicare purposes. For Medicare only, by signing this I certify the plan of care. Please let me know if there are questions or concerns regarding this plan of care. Physician Signature:____ Date:
--- NOTE | 2025-09-24 12:36 | HP.PTDCSUM ---
Discharge Summary D/C summary: It has been my pleasure to treat SHARIFA SHIPLEY referred by SAIRA Tilley, with the diagnosis of Incomplete defecation R15.0 for a total of 7 visit(s). Discharge Date: 09/24/25 Please see the following information for a summary of their discharge status. Subjective Subjective: Overall she reports about 20-30% improvement in her stool leakage. She admits she hasn't been as compliant with her exercises and plans to work on greater compliance moving forward. Pain Right lowback/hip: Pain Intensity (Out of 10): 2 Objective Objective/Function: Sharifa's biggest goal in coming for PT was to address her stool leakage. Many times she is not even aware it is happening and it occurs after a bowel movement. She states this leakage varies day to day and seems to be related to her diet but overall she feels about 20-30% improved with less stool leakage. She admits she hasn't been overly compliant with her pelvic floor exercises and plans to try to improve her diligence with doing those. Her pelvic floor strength has improved and her tightness has resolved. Rectal exam today showed good strength and no areas of tightness rectally. Goals Goal 1:: Sharifa will not experience any spontaneous stool leaking over the course of a month to allow for less disruption in her day to day activities allowing her to feel like she doesn't have to limit social activities. 09/24/25 She feels 20-30% improved with her stool leakage. Goal Progress: Progressing Goal 2:: Sharifa will not leak with a cough, sneeze or sudden urgency. 09/24/25 She has realized leaking is worse after 3-4 cups of coffee. Usually she doesn't experience leaking in general. Goal 3:: Sharifa's low back pain and right hip pain will be absent during activities around her home which require some bending repetitively such as in housework. 09/24/25 She feels at least 50% and it is not constant anymore. When she lays flat with her feet out straight in front of her she can feel the back pain. Averages 2/10. Plan Plan: Sharifa's stool leakage appears to be related to any of the following possibilities: 1) Small rectocele which is affecting her ability to fully empty her bowels. Will educate her in splinting and evacuation techniques to help 2) Pelvic floor tightness that could be affecting her pelvic floor contraction ability, sensation and or ability to empty bowels completely 3) Difficult to rule out the possibility of encopresis given her chronic history of constipation She has pelvic floor tightness and weakness which we will address in our sessions with manual therapy and strengthening. We will also address her right lumbar symptoms as that is also affecting her pelvic floor. D/C from PT and closing her chart. D/C Information Discharge Comments: She will be following up with colorectal specialist d/c sentence: If there are questions or concerns regarding this patient's physical therapy, please feel free to call me at [phone]. Thank you for the referral of this patient. Sincerely, Vita Warren
== END 2025-09-24 19:00 | disposition home or self-care (01) ==
LOC: PT 11:00
PROVIDERS: PCP Family Medicine; Referring Provider Nurse Practitioner Acute Care; Visit Provider Nurse Practitioner Acute Care
DX: R15.0 Incomplete defecation (principal)
CPT/HCPCS: 97110; 97112; 97140; 97162